=== PATIENT | female | born 1975 | race African-American/Black ===

== ENCOUNTER 2021-03-14 22:59 | Emergency (ER) | payer MEDICAID ==
[~2021-03-14] VITALS: Ht 165.1 cm; Wt 91.0 kg
[2021-03-14] MEDS ORDERED: KETOROLAC 60MG/2ML VIAL IM ONE (23:45)
[2021-03-15 01:04] LABS: BASOPHILS % 0.9 % (0.0-2.0); EOSINOPHILS % 1.9 % (0.0-5.0); HEMATOCRIT. 42.6 % (36.0-48.0); HEMOGLOBIN. 14.6 g/dL (12.0-16.0); LYMPHOCYTES % 27.7 % (20.0-50.0); MEAN CORPUSCULAR HEMOGLOBIN 30.8 pg (28.0-32.0); MEAN PLATELET VOLUME 7.2 fl (7.4-10.4); MONOCYTES % 8.1 % (2.0-8.0); NEUTROPHILS % 61.4 % (40.0-76.0); PLATELET 352 x1000/uL (130-400); RED BLOOD CELL COUNT 4.73 mill/uL (4.2-5.4); RED CELL DISTRIBUTION WIDTH 13.4 % (11.6-14.6)
[2021-03-15 01:11] LABS: CHLORIDE 107 mEq/L (98-107)
[2021-03-15] MEDS ORDERED: INDO50CA98 MT (01:26)
[2021-03-15 01:42] VITALS: BP 120/79
== END 2021-03-15 01:42 | disposition home or self-care (01) ==
LOC: ER 22:59
DX: M10.9 Gout, unspecified (principal)
CPT/HCPCS: 36415; 73630; 80048; 84550; 85025; 96372; 99284; J1885